=== PATIENT | female | born 1965 | race Hispanic/Latino ===

== ENCOUNTER 2023-12-03 15:54 | Emergency (ER) | payer BC ==
[~2023-12-03] VITALS: Ht 157.5 cm; Wt 77.1 kg
[2023-12-03 16:10] VITALS: TEMP 98.2
[2023-12-03] MEDS ORDERED: MECLIZINE HCL12.5 MG PO (16:43)
[2023-12-03 17:00] VITALS: PULSE 62; RESP 16
[2023-12-03] MEDS: ONDANSETRON HCL INJ 2MG/ML 2ML 2 MG/ML VIAL IV STA (17:23)
[2023-12-03 17:27] VITALS: BP 142/76; PULSE 59; RESP 16; O2SAT 97
== END 2023-12-03 17:27 | disposition home or self-care (01) ==
LOC: ER 15:58
DX: R42 Dizziness and giddiness (principal); R11.0 Nausea; I10 Essential (primary) hypertension; F41.9 Anxiety disorder, unspecified; R94.31 Abnormal electrocardiogram [ECG] [EKG]
CPT/HCPCS: 93005; 99283; J2405